=== PATIENT | male | born 1945 | race Caucasian/White ===

== ENCOUNTER → 2018-07-02 | Outpatient (CLI) | payer MEDICARE ==
[~2018-07-02] MED LIST: ASPI500T10 PO; ATOR10TA9 PO; DILT60TA30 PO; IPRA4AER INH; LISI40TA PO; OMNIPAQUE 350 MG/ML, 100ML BOTTLE ONE
== END | disposition home or self-care (01) ==
LOC: CFH 09:45
PROVIDERS: ATTEND Family Medicine
DX: I65.23 Occlusion and stenosis of bilateral carotid arteries (principal); G31.89 Other specified degenerative diseases of nervous system; I67.82 Cerebral ischemia; R90.82 White matter disease, unspecified; I70.293 Other atherosclerosis of native arteries of extremities, bilateral legs
CPT/HCPCS: 70470; 93880; Q9967

== ENCOUNTER 2019-01-03 12:32 | Emergency (ER) | payer MEDICARE ==
[~2019-01-03] VITALS: Ht 172.7 cm; Wt 58.7 kg
[~2019-01-03 12:32] MED LIST changes: -OMNIPAQUE 350 MG/ML, 100ML BOTTLE ONE
--- NOTE | 2019-01-03 13:06 | NUR ---
THIS IS A 73 YO MALE COMING IN FOR LEFT SIDED CHEST PRESSURE FOR 2 WEEKS, STATES IT STARTS AROUND 730PM AND EASES AROUND 2AM. PATIENT STATES HE HAS SOB WHEN THE PAIN STARTS, TROUBLE SLEEPING, AND FEELS LIKE HEARTBURN. PATIENT HAS DIARRHEA OCCASIONALLY IN THE MORNINGS, DENIES N/V. PATIENT STATES THIS HAS HAPPENED BEFORE, AND HAS HAD STENTS PLACED FOR NARROWED ARTERIES. PATIENT PLACED ON HAND CANDY DIPPER, NSR NOTED, CONTINUOUS SPO2 AT 94%, CYCLE BP Q1HR. NEEDS ADDRESSED.
[2019-01-03] MEDS ORDERED: ASPI-496 PO (13:10)
[2019-01-03] MEDS ORDERED: MAALOX/HYOSCYAMINE/LIDOCAINE 45 ML BTL ONE (13:11)
--- NOTE | 2019-01-03 13:15 | NUR ---
PATIENT MEDICATED PER EMAR, TOLERATED WELL. DENIES FURTHER NEEDS AT THIS TIME.
[2019-01-03 13:22] LABS: BASOPHILS # (AUTO) 0.11 x10^3/uL (0-0.1); BASOPHILS % (AUTO) 1 % (0-1); EOSINOPHILS # (AUTO) 0.46 x10^3/uL (0-0.4); EOSINOPHILS % (AUTO) 4 % (1-7); LYMPHOCYTES % (AUTO) 21 % (22-44); MD NO; MEAN CORPUSCULAR HEMOGLOBIN 30.1 pg (27.5-34.5); MEAN CORPUSCULAR HGB CONC 32.8 g/dL (33.2-36.2); MEAN CORPUSCULAR VOLUME 91.9 fL (81-97); MEAN PLATELET VOLUME 7.9 fL (7.4-10.4); MONOCYTES % (AUTO) 8 % (2-9); NEUTROPHILS # (AUTO) 7.78 x10^3/uL (1.8-6.8); NEUTROPHILS % (AUTO) 66 % (42-75); PLATELET COUNT 356 x10^3/uL (130-400); RED BLOOD COUNT 4.82 x10^6/uL (4.38-5.82); RED CELL DISTRIBUTION WIDTH 15.5 % (9.4-14.8)
[2019-01-03] MEDS ORDERED: MAALOX/HYOSCYAMINE/LIDOCAINE 45 ML BTL PO ONE (13:30)
[2019-01-03 13:32] LABS: ALANINE AMINOTRANSFERASE 26 U/L (12-78); ALBUMIN 3.7 g/dL (3.4-5.0); ANION GAP 7 mmol/L (5-15); CALCIUM 9.2 mg/dL (8.5-10.1); CHLORIDE 102 mmol/L (98-107); CREATININE 0.95 mg/dL (0.7-1.3)
[2019-01-03 13:36] LABS: ALKALINE PHOSPHATASE 96 U/L (45-117); BILIRUBIN,TOTAL 0.5 mg/dL (0.2-1.0); TOTAL PROTEIN 7.8 g/dL (6.4-8.2); TROPONIN I < 0.015 ng/mL (0.000-0.045)
--- NOTE | 2019-01-03 13:42 | NUR ---
IV INSERTED, NAD, DENIES NEEDS AT THIS TIME.
--- NOTE | 2019-01-03 14:46 | NUR ---
PATIENT IN CT
[2019-01-03] MEDS ORDERED: OMNIPAQUE 350 MG/ML, 75ML BOTTLE ONE (14:53)
--- NOTE | 2019-01-03 14:59 | NUR ---
PATIENT BACK FROM CT. PLACED BACK ON VOCATIONAL EDUCATION PROFESSIONAL, NSR NOTED, CONTINUOUS SPO2 AT 98%, CYCLE BP Q1HR. DENIES NEEDS AT THIS TIME.
[2019-01-03 15:58] VITALS: BP 134/68
== END 2019-01-03 16:07 | disposition home or self-care (01) ==
LOC: ED 14:07
DX: R07.89 Other chest pain (principal); R91.8 Other nonspecific abnormal finding of lung field; I10 Essential (primary) hypertension; J44.9 Chronic obstructive pulmonary disease, unspecified; Z87.891 Personal history of nicotine dependence
CPT/HCPCS: 36415; 71045; 71260; 80053; 83690; 84484; 85025; 93005; 99284; Q9967

== ENCOUNTER 2019-01-07 11:18 | Day surgery (SDC) | payer MEDICARE ==
[~2019-01-07] VITALS: Ht 175.3 cm; Wt 58.0 kg
[~2019-01-07 11:18] MED LIST changes: -AMLODIPINE PO; -ATOR20TA PO; -LISI1TAB19 PO
[2019-01-07] MEDS ORDERED: FENTANYL PF 100 MCG/2ML ONE ×2 (11:41→13:33)
[2019-01-07] MEDS ORDERED: LACTATED RINGERS 1,000 ML IV ONE (11:43)
[2019-01-07 11:56] VITALS: BP 138/70
[2019-01-07] MEDS ORDERED: AMLODIPINE PO (11:59)
[2019-01-07] MEDS ORDERED: ATOR20TA PO (12:00)
[2019-01-07] MEDS ORDERED: IPRA4AER INH (12:00)
[2019-01-07] MEDS ORDERED: LISI1TAB19 PO (12:00)
[2019-01-07] MEDS ORDERED: ASPI-496 PO (12:00)
[2019-01-07] MEDS ORDERED: PROPOFOL 10 MG/ML, 20ML ONE (12:28)
[2019-01-07] MEDS ORDERED: GLYCOPYRROLATE 0.2MG/1ML, 5ML ONE (12:28)
[2019-01-07] MEDS ORDERED: PHENYLEPHRINE 10 MG/ML ONE (12:28)
[2019-01-07] MEDS ORDERED: EPHEDRINE 50 MG/ML, 1ML ONE ×2 (12:28→12:55)
[2019-01-07] MEDS ORDERED: SUGAMMADEX 200 MG/2 ML IVPush ONE (12:52)
[2019-01-07] MEDS ORDERED: SUCCINYLCHOLINE 20 MG/ML, 10ML ONE (12:53)
[2019-01-07] MEDS ORDERED: ONDANSETRON 2MG/ML, 2ML ONE (12:53)
[2019-01-07] MEDS ORDERED: DEXAMETHASONE 4 MG/ML, 1ML ONE (12:53)
[2019-01-07] MEDS ORDERED: ROCURONIUM 10MG/ML,5ML ONE (12:53)
[2019-01-07] MEDS ORDERED: PROMETHAZINE 25 MG/ML, 1ML IV PRN (13:00)
[2019-01-07] MEDS ORDERED: LABETALOL 5MG/ML, 20ML IV PRN (13:00)
[2019-01-07] MEDS ORDERED: ACETAMINOPHEN 325 MG TABLET PO PRN (13:00)
[2019-01-07] MEDS ORDERED: ONDANSETRON 2MG/ML, 2ML IV PRN (13:00)
[2019-01-07] MEDS ORDERED: FENTANYL PF 100 MCG/2ML IV PRN (13:00)
[2019-01-07] MEDS ORDERED: MEPERIDINE/PF 25MG/ML,1ML IVPush PRN (13:00)
[2019-01-07] MEDS ORDERED: hydrALAzine 20 MG/ML, 1ML IV PRN (13:00)
[2019-01-07] MEDS ORDERED: HYDROcodone/APAP 7.5-325MG/15ML UDC PO PRN (13:00)
[2019-01-07] MEDS ORDERED: EPHEDRINE 50 MG/ML, 1ML IVPush PRN (13:00)
[2019-01-07] MEDS ORDERED: HYDROmorphone 2 MG/ML, 1ML IVPush PRN (13:00)
[2019-01-07] MEDS ORDERED: KETOROLAC 30 MG/1 ML ONE (13:01)
== END 2019-01-07 15:55 | disposition home or self-care (01) ==
LOC: OUT 11:18
PROVIDERS: ATTEND Internal Medicine
DX: R91.8 Other nonspecific abnormal finding of lung field (principal); R59.1 Generalized enlarged lymph nodes; J98.4 Other disorders of lung; I10 Essential (primary) hypertension; J44.9 Chronic obstructive pulmonary disease, unspecified; E78.5 Hyperlipidemia, unspecified; I73.9 Peripheral vascular disease, unspecified; I25.10 Atherosclerotic heart disease of native coronary artery without angina pectoris; Z79.02 Long term (current) use of antithrombotics/antiplatelets; Z79.82 Long term (current) use of aspirin; Z79.899 Other long term (current) drug therapy; Z87.891 Personal history of nicotine dependence; Z95.5 Presence of coronary angioplasty implant and graft; Z82.49 Family history of ischemic heart disease and other diseases of the circulatory system; Z82.5 Family history of asthma and other chronic lower respiratory diseases
CPT/HCPCS: 31624; 31627; 31628; 31652; 71045; 87015; 87070; 87102; 87116; 87205; 87206; 88112; 88172; 88173; 88177; 88305; J0330; J1100; J1885; J2370; J2405; J2704; J3010; 31625; 31629; 76000

== ENCOUNTER → 2019-01-07 | Outpatient (CLI) | payer MEDICARE ==
[~2019-01-07] MED LIST changes: +AMLODIPINE PO; +ASPI-496 PO; +ATOR20TA PO; +LISI1TAB19 PO
== END | disposition home or self-care (01) ==
LOC: CFH 10:13
PROVIDERS: ATTEND Internal Medicine
DX: R91.8 Other nonspecific abnormal finding of lung field (principal); J44.9 Chronic obstructive pulmonary disease, unspecified; I10 Essential (primary) hypertension; E78.5 Hyperlipidemia, unspecified; Z87.891 Personal history of nicotine dependence
CPT/HCPCS: 71250

== ENCOUNTER → 2019-01-14 | Outpatient (CLI) | payer MEDICARE ==
[~2019-01-14] MED LIST changes: +AMLODIPINE PO; +ATOR20TA PO; +LISI1TAB19 PO
== END | disposition home or self-care (01) ==
LOC: CARD 10:29
PROVIDERS: ATTEND Internal Medicine
DX: J44.9 Chronic obstructive pulmonary disease, unspecified (principal); E78.2 Mixed hyperlipidemia; I25.10 Atherosclerotic heart disease of native coronary artery without angina pectoris; I10 Essential (primary) hypertension; Z87.891 Personal history of nicotine dependence
CPT/HCPCS: 94060; 94618; 94726; 94729

== ENCOUNTER 2019-01-28 07:38 | Day surgery (SDC) | payer MEDICARE ==
[~2019-01-28] VITALS: Ht 172.7 cm; Wt 59.2 kg
[2019-01-28] MEDS ORDERED: SODIUM CHLORIDE 0.9% 1,000 ML IV SCH (08:19)
[2019-01-28 08:49] VITALS: BP 126/68
[2019-01-28] MEDS ORDERED: FLUMAZENIL 0.1 MG/1 ML, 5ML ONE (09:04)
[2019-01-28] MEDS ORDERED: MIDAZOLAM 1 MG/ML, 5ML ONE (09:04)
[2019-01-28] MEDS ORDERED: FENTANYL PF 100 MCG/2ML ONE (09:04)
[2019-01-28] MEDS ORDERED: NALOXONE 1 MG/ML, 2ML ONE (09:05)
== END 2019-01-28 13:10 | disposition home or self-care (01) ==
LOC: OUT 07:38
PROVIDERS: ATTEND Internal Medicine
DX: R91.8 Other nonspecific abnormal finding of lung field (principal); J44.9 Chronic obstructive pulmonary disease, unspecified; C34.32 Malignant neoplasm of lower lobe, left bronchus or lung; I25.10 Atherosclerotic heart disease of native coronary artery without angina pectoris; I25.84 Coronary atherosclerosis due to calcified coronary lesion; I73.9 Peripheral vascular disease, unspecified; I10 Essential (primary) hypertension; E78.2 Mixed hyperlipidemia; Z79.02 Long term (current) use of antithrombotics/antiplatelets; Z79.82 Long term (current) use of aspirin; Z79.899 Other long term (current) drug therapy; Z87.891 Personal history of nicotine dependence
CPT/HCPCS: 32405; 71045; 77012; 88305; 99156; 99157; J2250; J3010; J2310

== ENCOUNTER → 2019-02-23 | Outpatient (CLI) | payer MEDICARE | END | disposition home or self-care (01) | LOC: PETCFH 13:06 | PROVIDERS: ATTEND Internal Medicine | DX: J43.9 Emphysema, unspecified (principal); E78.5 Hyperlipidemia, unspecified; I10 Essential (primary) hypertension; R91.8 Other nonspecific abnormal finding of lung field; I25.84 Coronary atherosclerosis due to calcified coronary lesion; F17.211 Nicotine dependence, cigarettes, in remission; J98.4 Other disorders of lung; Z68.20 Body mass index [BMI] 20.0-20.9, adult | CPT/HCPCS: 78815; A9552 ==

== ENCOUNTER 2019-02-26 08:18 | Outpatient (CLI) | payer MEDICARE | END 2019-02-26 23:59 | disposition home or self-care (01) | LOC: ROC 08:18 | PROVIDERS: ATTEND Radiology Radiation Oncology | DX: C34.32 Malignant neoplasm of lower lobe, left bronchus or lung (principal); C79.51 Secondary malignant neoplasm of bone | CPT/HCPCS: 99214; G0463 ==

== ENCOUNTER 2019-03-02 12:53 | Outpatient (CLI) | payer MEDICARE ==
[2019-03-02] MEDS ORDERED: GADOTERATE 7.5 MMOL/15 ML SYR ONE (13:57)
== END 2019-03-02 23:59 | disposition home or self-care (01) ==
LOC: CFH 12:53
PROVIDERS: ATTEND Internal Medicine
DX: G31.89 Other specified degenerative diseases of nervous system (principal); J44.9 Chronic obstructive pulmonary disease, unspecified; I25.2 Old myocardial infarction
CPT/HCPCS: 70553; A9575

== ENCOUNTER 2019-03-04 07:36 | Inpatient (IN) | payer MEDICARE ==
[~2019-03-04] VITALS: Ht 175.3 cm; Wt 61.3 kg
[2019-03-04 08:19] VITALS: BP 120/73
[2019-03-04] MEDS: SODIUM CHLORIDE 0.9% 1,000 ML IV SCH ×2 (08:41→20:10)
[2019-03-04] MEDS ORDERED: FENTANYL PF 100 MCG/2ML ONE ×2 (09:22→15:01)
[2019-03-04] MEDS ORDERED: MIDAZOLAM 1 MG/ML, 5ML ONE ×2 (09:22)
[2019-03-04] MEDS ORDERED: FLUMAZENIL 0.1 MG/1 ML, 5ML ONE (09:22)
[2019-03-04] MEDS ORDERED: NALOXONE 1 MG/ML, 2ML ONE ×2 (09:22→15:01)
[2019-03-04] MEDS ORDERED: HYDROcodone/APAP 5/325 TABLET ONE (13:57)
[2019-03-04] MEDS ORDERED: HYDROcodone/APAP 5/325 TABLET PO ONE (14:00)
[2019-03-04] MEDS ORDERED: LIDOCAINE 1%, 10ML ONE (15:48)
[2019-03-04] MEDS ORDERED: LIDOCAINE 1%, 20ML ONE (15:48)
[2019-03-04] MEDS ORDERED: morphine SULFATE 10 MG/ML, 1ML IVPush PRN (16:30)
[2019-03-04] MEDS ORDERED: IBUPROFEN 600 MG TABLET PO PRN (16:30)
[2019-03-04] MEDS ORDERED: ONDANSETRON ODT 4 MG PO PRN (16:30)
[2019-03-04] MEDS ORDERED: ACETAMINOPHEN 325 MG TABLET PO PRN (16:30)
[2019-03-04] MEDS ORDERED: hydrALAzine 20 MG/ML, 1ML IVPush PRN (16:30)
[2019-03-04 18:35] LABS: MEAN CORPUSCULAR HGB CONC 33.5 g/dL (33.2-36.2); MEAN CORPUSCULAR VOLUME 92.6 fL (81-97); MEAN PLATELET VOLUME 7.8 fL (7.4-10.4); PLATELET COUNT 444 x10^3/uL (130-400); RED BLOOD COUNT 4.06 x10^6/uL (4.38-5.82); RED CELL DISTRIBUTION WIDTH 16.6 % (9.4-14.8)
[2019-03-04 18:44] LABS: ANION GAP 6 mmol/L (5-15); CALCIUM 9.2 mg/dL (8.5-10.1); CHLORIDE 106 mmol/L (98-107); CREATININE 0.76 mg/dL (0.7-1.3)
[2019-03-04 18:45] VITALS: BP 141/61
[2019-03-04 18:55] LABS: BASOPHILS # (AUTO) 0.05 x10^3/uL (0-0.1); BASOPHILS % (AUTO) 1 % (0-1); EOSINOPHILS # (AUTO) 0.67 x10^3/uL (0-0.4); EOSINOPHILS % (AUTO) 6 % (1-7); LYMPHOCYTES # (AUTO) 1.71 x10^3/uL (1-3.4); LYMPHOCYTES % (AUTO) 15 % (22-44); MD SCAN; MONOCYTES # (AUTO) 1.74 x10^3/uL (0.2-0.8); MONOCYTES % (AUTO) 15 % (2-9); NEUTROPHILS # (AUTO) 7.38 x10^3/uL (1.8-6.8); NEUTROPHILS % (AUTO) 64 % (42-75)
[2019-03-04] MEDS: OXYcodone IR 5MG TABLET PO PRN (20:09)
[2019-03-04] MEDS ORDERED: CEFTRIAXONE PMX 2GM/50ML 50 ML IV SCH (20:30)
[2019-03-04 21:44] VITALS: BP 112/67
[2019-03-04] MEDS: DOXYCYCLINE 100MG TABLET PO SCH (21:44)
[2019-03-05 00:10] VITALS: BP 134/73
[2019-03-05] MEDS: OXYcodone IR 5MG TABLET PO PRN ×5 (01:05→21:09)
[2019-03-05 04:11] VITALS: BP 138/76
[2019-03-05 04:54] LABS: BASOPHILS # (AUTO) 0.04 x10^3/uL (0-0.1); BASOPHILS % (AUTO) 0 % (0-1); EOSINOPHILS # (AUTO) 0.47 x10^3/uL (0-0.4); EOSINOPHILS % (AUTO) 5 % (1-7); LYMPHOCYTES # (AUTO) 1.21 x10^3/uL (1-3.4); LYMPHOCYTES % (AUTO) 12 % (22-44); MD NO; MEAN CORPUSCULAR HEMOGLOBIN 30.4 pg (27.5-34.5); MEAN PLATELET VOLUME 8.1 fL (7.4-10.4); MONOCYTES # (AUTO) 1.35 x10^3/uL (0.2-0.8); MONOCYTES % (AUTO) 13 % (2-9); NEUTROPHILS # (AUTO) 7.34 x10^3/uL (1.8-6.8); NEUTROPHILS % (AUTO) 71 % (42-75); PLATELET COUNT 405 x10^3/uL (130-400); RED BLOOD COUNT 3.65 x10^6/uL (4.38-5.82); RED CELL DISTRIBUTION WIDTH 16.3 % (9.4-14.8)
[2019-03-05 07:04] VITALS: BP 149/73
[2019-03-05] MEDS: CEFTRIAXONE PMX 1GM/50ML 50 ML IV SCH ×2 (09:28→20:35)
[2019-03-05] MEDS ORDERED: BISACODYL 10 MG SUPP PR PRN (10:00)
[2019-03-05] MEDS ORDERED: LACTULOSE 20 GM/30 ML UDC PO PRN (10:00)
[2019-03-05] MEDS: AZITHROMYCIN 500 MG in SODIUM CHLORIDE 0.9% 250 ML IV SCH (10:08)
[2019-03-05] MEDS: SODIUM CHLORIDE 0.9% 1,000 ML IV SCH (11:19)
[2019-03-05] MEDS: DOXYCYCLINE 100MG TABLET PO SCH ×2 (11:19→20:36)
[2019-03-05 15:36] VITALS: BP 138/72
[2019-03-05] MEDS ORDERED: TEMPLATE NON-FORMULARY MED. (Ipratropium/Albuterol Sulfate (Combivent Respimat Inhal Spray INH PRN (16:00)
[2019-03-05 19:49] VITALS: BP 121/67
[2019-03-05] MEDS: MAGNESIUM HYDROXIDE 8%, 30ML UDC PO SCH (20:36)
[2019-03-05] MEDS ORDERED: ALBUTEROL/IPRATROPIUM 2.5MG/0.5MG, 3 ML HHN PRN (21:00)
[2019-03-05] MEDS ORDERED: SENNA/DOCUSATE TABLET PO SCH (21:00)
[2019-03-06] MEDS: SODIUM CHLORIDE 0.9% 1,000 ML IV SCH (00:25)
[2019-03-06 00:49] VITALS: BP 144/68
[2019-03-06] MEDS: OXYcodone IR 5MG TABLET PO PRN ×3 (01:24→09:19)
[2019-03-06 06:54] VITALS: BP 148/70
[2019-03-06] MEDS: CEFTRIAXONE PMX 1GM/50ML 50 ML IV SCH (08:17)
[2019-03-06] MEDS: DOXYCYCLINE 100MG TABLET PO SCH (08:18)
[2019-03-06] MEDS: MAGNESIUM HYDROXIDE 8%, 30ML UDC PO SCH (08:19)
[2019-03-06] MEDS ORDERED: AZIT250T PO (08:49)
[2019-03-06] MEDS ORDERED: CEFD300C37 PO (08:49)
[2019-03-06] MEDS ORDERED: LISINOPRIL PO SCH (09:00)
[2019-03-06] MEDS ORDERED: HYDROCHLOROTHIAZIDE 25 MG TABLET PO SCH (09:00)
[2019-03-06] MEDS ORDERED: AMLODIPINE 10 MG TAB PO SCH (09:00)
[2019-03-06] MEDS ORDERED: DOCUSATE 100 MG CAPSULE PO SCH (09:00)
[2019-03-06] MEDS ORDERED: ATORVASTATIN 80 MG TABLET PO SCH (09:00)
[2019-03-06] MEDS ORDERED: ASPIRIN 81 MG TABLET EC PO SCH (09:00)
[2019-03-06] MEDS ORDERED: LISINOPRIL 40 MG TABLET PO SCH (09:00)
[2019-03-06] MEDS ORDERED: [UNRECOGNIZED DRUG - OTHER] PO SCH (09:00)
[2019-03-06] MEDS ORDERED: HYDROCHLOROTHIAZIDE PO SCH (09:00)
[2019-03-06] MEDS: AZITHROMYCIN 500 MG in SODIUM CHLORIDE 0.9% 250 ML IV SCH (09:19)
== END 2019-03-06 11:43 | disposition home or self-care (01) | DRG 199 ==
LOC: OUT 07:36 → SUATTDRO 15:48 → ORIP 16:03 → 4NE 18:37 → OBSVTOIN 03-05 13:15 → DCLOUNGE 03-06 11:34
PROVIDERS: ADMIT Hospitalist; ATTEND Family Medicine
PROC: 0BBF3ZX Excision of Right Lower Lung Lobe, Percutaneous Approach, Diagnostic (ICD-10-PCS; principal; 2019-03-04)
PROC: 0W9930Z Drainage of Right Pleural Cavity with Drainage Device, Percutaneous Approach (ICD-10-PCS; 2019-03-04)
DX: J95.811 Postprocedural pneumothorax (principal); J18.9 Pneumonia, unspecified organism; C34.32 Malignant neoplasm of lower lobe, left bronchus or lung; C34.31 Malignant neoplasm of lower lobe, right bronchus or lung; E78.5 Hyperlipidemia, unspecified; Y84.8 Other medical procedures as the cause of abnormal reaction of the patient, or of later complication, without mention of misadventure at the time of the procedure; Y92.238 Other place in hospital as the place of occurrence of the external cause; I10 Essential (primary) hypertension; I25.10 Atherosclerotic heart disease of native coronary artery without angina pectoris; I73.9 Peripheral vascular disease, unspecified; Z85.118 Personal history of other malignant neoplasm of bronchus and lung; Z87.891 Personal history of nicotine dependence; Z82.49 Family history of ischemic heart disease and other diseases of the circulatory system; Z79.899 Other long term (current) drug therapy; Z79.82 Long term (current) use of aspirin
CPT/HCPCS: 32405; 32557; 36415; 71045; 71046; 77012; 80048; 84145; 85025; 88305; 88341; 88342; 99156; 99157; G0378; J0456; J0696; J2250; J3010; C1729; J1642; J2310; J7030; J7050

== ENCOUNTER 2019-05-21 10:26 | Outpatient (CLI) | payer MEDICARE ==
[~2019-05-21 10:26] MED LIST changes: +AZIT250T PO; +CEFD300C37 PO
[2019-05-21] MEDS ORDERED: OMNIPAQUE 350 MG/ML, 100ML BOTTLE ONE (12:05)
[2019-06-17] MEDS ORDERED: OXYC15TA60 PO (09:02)
== END 2019-05-21 23:59 | disposition home or self-care (01) ==
LOC: RAD 10:26
PROVIDERS: ATTEND Pathology Hematology
DX: C34.32 Malignant neoplasm of lower lobe, left bronchus or lung (principal); I70.0 Atherosclerosis of aorta; J43.2 Centrilobular emphysema; J90 Pleural effusion, not elsewhere classified; I25.10 Atherosclerotic heart disease of native coronary artery without angina pectoris; K76.0 Fatty (change of) liver, not elsewhere classified
CPT/HCPCS: 36415; 71260; 74177; 82565; Q9967

== ENCOUNTER 2019-05-25 09:59 | Inpatient (IN) | payer MEDICARE ==
[~2019-05-25] VITALS: Ht 172.7 cm; Wt 47.4 kg
[2019-05-25] MEDS ORDERED: AZITHROMYCIN 500 MG in SODIUM CHLORIDE 0.9% 250 ML IV ONE (10:30)
[2019-05-25] MEDS ORDERED: CEFTRIAXONE PMX 1GM/50ML 50 ML IV ONE (10:30)
[2019-05-25] MEDS ORDERED: CEFTRIAXONE 1,000 MG ONE (10:53)
--- NOTE | 2019-05-25 11:25 | NUR ---
CXR AT THE BEDSIDE
[2019-05-25 11:32] LABS: BASOPHILS # (AUTO) 0.02 x10^3/uL (0-0.1); BASOPHILS % (AUTO) 0 % (0-1); EOSINOPHILS # (AUTO) 0.53 x10^3/uL (0-0.4); EOSINOPHILS % (AUTO) 4 % (1-7); LYMPHOCYTES % (AUTO) 5 % (22-44); MD NO; MEAN CORPUSCULAR HEMOGLOBIN 28.9 pg (27.5-34.5); MEAN CORPUSCULAR HGB CONC 32.9 g/dL (33.2-36.2); MEAN CORPUSCULAR VOLUME 87.9 fL (81-97); MEAN PLATELET VOLUME 7.5 fL (7.4-10.4); MONOCYTES # (AUTO) 1.43 x10^3/uL (0.2-0.8); MONOCYTES % (AUTO) 12 % (2-9); NEUTROPHILS # (AUTO) 9.37 x10^3/uL (1.8-6.8); NEUTROPHILS % (AUTO) 78 % (42-75); PLATELET COUNT 471 x10^3/uL (130-400); RED BLOOD COUNT 4.03 x10^6/uL (4.38-5.82); RED CELL DISTRIBUTION WIDTH 15.7 % (9.4-14.8)
[2019-05-25 11:41] LABS: ALANINE AMINOTRANSFERASE 66 U/L (12-78); ALBUMIN 2.8 g/dL (3.4-5.0); ANION GAP 7 mmol/L (5-15); CALCIUM 9.3 mg/dL (8.5-10.1); CHLORIDE 98 mmol/L (98-107)
--- NOTE | 2019-05-25 11:43 | NUR ---
md is at the bedside for dispo. pt agreeable to admission.
[2019-05-25 11:44] LABS: ALKALINE PHOSPHATASE 78 U/L (45-117); BILIRUBIN,TOTAL 0.5 mg/dL (0.2-1.0); CREATININE 1.21 mg/dL (0.7-1.3); TOTAL PROTEIN 7.4 g/dL (6.4-8.2)
--- NOTE | 2019-05-25 12:39 | NUR ---
ekg at the bedside
--- NOTE | 2019-05-25 12:57 | NUR ---
paul (rn) is assuming care of this pt at this time. sbar report was exchanged at the bedside.
--- NOTE | 2019-05-25 13:45 | NUR ---
PT RESTING ON GURNEY W/ CALL LIGHT IN REACH, SIDE RAILS UPX2. NADN.
[2019-05-25] MEDS ORDERED: SODIUM CHLORIDE FLUSH 10ML SYR IVF PRN (14:00)
--- NOTE | 2019-05-25 14:22 | NUR ---
ADMITTING MD AT BEDSIDE.
--- NOTE | 2019-05-25 14:36 | NUR ---
MED REC DONE.
--- NOTE | 2019-05-25 14:43 | NUR ---
SPOKE W/ REGARDING [place] ORDER. STATES SHE WILL CHANGE ORDER TO 1GM INSTEAD OF 2.
[2019-05-25] MEDS ORDERED: ALBUTEROL-IPRATROPIUM MDI INH INH PRN (15:00)
--- NOTE | 2019-05-25 15:23 | NUR ---
500 CC BOLUS GIVEN PER VERBAL ORDER. BP NOW 114/55.
--- NOTE | 2019-05-25 15:24 | NUR ---
REPORT GIVEN TO LUIS CAMERON. PT IS READY FOR TRANSPORT AT THIS TIME.
--- NOTE | 2019-05-25 16:02 | NUR ---
[facility] TRANSPORTED PT UPSTAIRS
[2019-05-25] MEDS: ENOXAPARIN 40 MG/0.4 ML SQ SCH (16:13)
[2019-05-25 16:30] VITALS: BP 129/61
[2019-05-25] MEDS ORDERED: OXYC-307 PO (16:59)
[2019-05-25] MEDS ORDERED: LEVO750P2 PO (17:03)
[2019-05-25 19:39] VITALS: BP 101/52
[2019-05-26 01:27] VITALS: BP 115/63
[2019-05-26] MEDS: OXYcodone/APAP 10/325MG TABLET PO PRN ×2 (02:18→11:52)
[2019-05-26 05:47] LABS: BASOPHILS # (AUTO) 0.02 x10^3/uL (0-0.1); BASOPHILS % (AUTO) 0 % (0-1); EOSINOPHILS # (AUTO) 0.95 x10^3/uL (0-0.4); EOSINOPHILS % (AUTO) 10 % (1-7); LYMPHOCYTES # (AUTO) 0.55 x10^3/uL (1-3.4); LYMPHOCYTES % (AUTO) 6 % (22-44); MD NO; MEAN CORPUSCULAR HGB CONC 33.1 g/dL (33.2-36.2); MEAN CORPUSCULAR VOLUME 87.7 fL (81-97); MEAN PLATELET VOLUME 7.6 fL (7.4-10.4); MONOCYTES # (AUTO) 1.31 x10^3/uL (0.2-0.8); MONOCYTES % (AUTO) 13 % (2-9); NEUTROPHILS # (AUTO) 7.05 x10^3/uL (1.8-6.8); NEUTROPHILS % (AUTO) 71 % (42-75); PLATELET COUNT 459 x10^3/uL (130-400); RED BLOOD COUNT 3.73 x10^6/uL (4.38-5.82); RED CELL DISTRIBUTION WIDTH 16.1 % (9.4-14.8)
[2019-05-26 05:58] LABS: ALBUMIN 2.4 g/dL (3.4-5.0); ANION GAP 8 mmol/L (5-15); CALCIUM 8.9 mg/dL (8.5-10.1); CHLORIDE 100 mmol/L (98-107)
[2019-05-26 06:01] LABS: ALANINE AMINOTRANSFERASE 55 U/L (12-78); ALKALINE PHOSPHATASE 68 U/L (45-117); BILIRUBIN,TOTAL 0.3 mg/dL (0.2-1.0); CREATININE 0.75 mg/dL (0.7-1.3); TOTAL PROTEIN 6.4 g/dL (6.4-8.2)
[2019-05-26 07:34] VITALS: BP 94/55
[2019-05-26] MEDS ORDERED: ATORVASTATIN 80 MG TABLET PO SCH (09:00)
[2019-05-26] MEDS ORDERED: AZITHROMYCIN 500 MG TABLET PO SCH (09:00)
[2019-05-26] MEDS ORDERED: ASPIRIN 81 MG TABLET EC PO SCH (09:00)
[2019-05-26] MEDS ORDERED: CEFTRIAXONE PMX 2GM/50ML 50 ML IV SCH (12:00)
[2019-05-26 12:31] VITALS: BP 101/54
[2019-05-26] MEDS ORDERED: AZIT250T PO (12:51)
[2019-05-26] MEDS ORDERED: AMOX500T PO (12:51)
[2019-05-26] MEDS: ENOXAPARIN 40 MG/0.4 ML SQ SCH (14:30)
[2019-06-17] MEDS ORDERED: OXYC15TA60 PO (09:02)
== END 2019-05-26 15:24 | disposition home or self-care (01) | DRG 177 ==
LOC: ED 10:30 → EDIP 13:44 → 3E 15:52
PROVIDERS: ADMIT Internal Medicine; ATTEND Family Medicine
DX: J15.6 Pneumonia due to other Gram-negative bacteria (principal); J96.21 Acute and chronic respiratory failure with hypoxia; E43 Unspecified severe protein-calorie malnutrition; J44.0 Chronic obstructive pulmonary disease with (acute) lower respiratory infection; E87.1 Hypo-osmolality and hyponatremia; C34.90 Malignant neoplasm of unspecified part of unspecified bronchus or lung; J18.9 Pneumonia, unspecified organism; E86.0 Dehydration; E78.5 Hyperlipidemia, unspecified; Z20.828 Contact with and (suspected) exposure to other viral communicable diseases; D64.9 Anemia, unspecified; I10 Essential (primary) hypertension; I25.10 Atherosclerotic heart disease of native coronary artery without angina pectoris; Z82.5 Family history of asthma and other chronic lower respiratory diseases; Z87.891 Personal history of nicotine dependence; Z95.5 Presence of coronary angioplasty implant and graft
CPT/HCPCS: 36415; 71045; 80053; 82728; 83605; 84145; 85025; 86140; 87040; 93005; 96374; 96375; G0378; J0456; J0696; J1650; J7050

== ENCOUNTER 2019-06-10 09:39 | Outpatient (CLI) | payer MEDICARE ==
[~2019-06-10 09:39] MED LIST changes: +AMOX500T PO; +LEVO750P2 PO; +OXYC-307 PO
[2019-06-17] MEDS ORDERED: OXYC15TA60 PO (09:02)
== END 2019-06-10 23:59 | disposition home or self-care (01) ==
LOC: ROC 09:39
PROVIDERS: ATTEND Radiology Radiation Oncology
DX: Z08 Encounter for follow-up examination after completed treatment for malignant neoplasm (principal); Z85.118 Personal history of other malignant neoplasm of bronchus and lung; Z92.3 Personal history of irradiation
CPT/HCPCS: 99212; G0463

== ENCOUNTER 2019-07-03 10:44 | Outpatient (CLI) | payer MEDICARE ==
[~2019-07-03 10:44] MED LIST changes: +OXYC15TA60 PO
[2019-08-08] MEDS ORDERED: CEFD300C37 PO (10:30)
[2019-08-08] MEDS ORDERED: CARV6.2512 PO (10:30)
[2019-08-08] MEDS ORDERED: FURO-92 PO (10:30)
[2019-08-08] MEDS ORDERED: DOXY100T PO (10:30)
[2019-08-08] MEDS ORDERED: POTA20TA14 PO (10:31)
== END 2019-07-03 23:59 | disposition home or self-care (01) ==
LOC: RAD 10:44
PROVIDERS: ATTEND Physician Assistant
DX: Z51.12 Encounter for antineoplastic immunotherapy (principal); C34.32 Malignant neoplasm of lower lobe, left bronchus or lung; Z79.899 Other long term (current) drug therapy
CPT/HCPCS: 74022

== ENCOUNTER 2019-07-14 09:43 | Outpatient (CLI) | payer MEDICARE | END 2019-07-14 23:59 | disposition home or self-care (01) | LOC: CFH 09:43 | PROVIDERS: ATTEND Internal Medicine | DX: C34.32 Malignant neoplasm of lower lobe, left bronchus or lung (principal); J43.2 Centrilobular emphysema; J47.9 Bronchiectasis, uncomplicated; I70.0 Atherosclerosis of aorta; J98.4 Other disorders of lung; J90 Pleural effusion, not elsewhere classified; J98.11 Atelectasis; R91.8 Other nonspecific abnormal finding of lung field | CPT/HCPCS: 71250 ==

== ENCOUNTER 2019-07-31 07:52 | Outpatient (CLI) | payer MEDICARE ==
[2019-08-08] MEDS ORDERED: CEFD300C37 PO (10:30)
[2019-08-08] MEDS ORDERED: CARV6.2512 PO (10:30)
[2019-08-08] MEDS ORDERED: FURO-92 PO (10:30)
[2019-08-08] MEDS ORDERED: DOXY100T PO (10:30)
[2019-08-08] MEDS ORDERED: POTA20TA14 PO (10:31)
== END 2019-07-31 23:59 | disposition home or self-care (01) ==
LOC: ROC 07:52
PROVIDERS: ATTEND Radiology Radiation Oncology
DX: Z08 Encounter for follow-up examination after completed treatment for malignant neoplasm (principal); C34.31 Malignant neoplasm of lower lobe, right bronchus or lung; I10 Essential (primary) hypertension; I25.10 Atherosclerotic heart disease of native coronary artery without angina pectoris; J44.9 Chronic obstructive pulmonary disease, unspecified; G89.29 Other chronic pain; J81.1 Chronic pulmonary edema; E78.5 Hyperlipidemia, unspecified; Z85.118 Personal history of other malignant neoplasm of bronchus and lung; Z99.81 Dependence on supplemental oxygen; Z87.891 Personal history of nicotine dependence; Z95.5 Presence of coronary angioplasty implant and graft; Z79.899 Other long term (current) drug therapy
CPT/HCPCS: 99213; G0463